=== PATIENT | male | born 1960 ===

== ENCOUNTER 2021-05-12 10:23 | Outpatient (CLI) | payer BC | END 2021-05-12 10:24 | disposition home or self-care (01) | LOC: CSHWCC 10:23 | PROVIDERS: ATTEND Nurse Practitioner Family | DX: E11.621 Type 2 diabetes mellitus with foot ulcer (principal); E11.40 Type 2 diabetes mellitus with diabetic neuropathy, unspecified; L97.529 Non-pressure chronic ulcer of other part of left foot with unspecified severity; E78.2 Mixed hyperlipidemia; G90.09 Other idiopathic peripheral autonomic neuropathy; I10 Essential (primary) hypertension; J44.9 Chronic obstructive pulmonary disease, unspecified | CPT/HCPCS: 11042; 99203; G0463 ==

== ENCOUNTER 2021-05-26 10:06 | Outpatient (CLI) | payer BC, SELFPAY | END 2021-05-26 10:07 | disposition home or self-care (01) | LOC: CSHWCC 10:06 | PROVIDERS: ATTEND Nurse Practitioner Family | DX: E11.621 Type 2 diabetes mellitus with foot ulcer (principal); E11.65 Type 2 diabetes mellitus with hyperglycemia; E11.40 Type 2 diabetes mellitus with diabetic neuropathy, unspecified; L97.529 Non-pressure chronic ulcer of other part of left foot with unspecified severity; E78.2 Mixed hyperlipidemia; G90.09 Other idiopathic peripheral autonomic neuropathy; I10 Essential (primary) hypertension; J44.9 Chronic obstructive pulmonary disease, unspecified | CPT/HCPCS: 99212; G0463 ==